=== PATIENT | female | born 1955 | race Caucasian/White ===

== ENCOUNTER → 2017-12-11 | Day surgery (SDC) | payer BC ==
[2017-12-10 12:25] LABS: ANION GAP 14.2 mmol/L (8-16); BLOOD UREA NITROGEN 10 mg/dL (7-26); BUN/CREATININE RATIO 13 (6-25); CALCIUM 9.5 mg/dL (8.4-10.2); CARBON DIOXIDE 27 mmol/L (22-29); CHLORIDE 104 mmol/L (98-107); CREATININE, SERUM 0.77 mg/dL (0.57-1.11); EST GLOMERULAR FILTRATION RATE > 60 ML/MIN (60-); GLUCOSE 73 mg/dL (74-118); POTASSIUM 4.2 mmol/L (3.5-5.1); SODIUM 141 mmol/L (136-145)
[~2017-12-11] MED LIST: AMLODIPINE BESYL5 MG PO; BISOPROLOL-HCT1 EAC1 PO; DEXAMETHASONE SOD PHOS INJ 4 MG/ML VIAL ONE; ENBREL50 MG/1 ML SC; ESTRADIOL1 MG PO; FENTANYL CITRATE/PF 100MCG/2 ML INJ ONE; KETOROLAC TROMETHAMINE 30 MG/ML VIAL ONE; LIDOCAINE HCL 2% LOCAL INJ 5 ML SDV VIAL INJ ONE; MELOXICAM7.5 MG PO; MIDAZOLAM HCL 2 MG/2 ML VIAL ONE; NEXIUM20 MG PO; ONDANSETRON HCL INJ 2 MG/ML VIAL ONE; PREDNISONE5 MG PO; PROPOFOL IV EMULSION 10 MG/ML 20 ML VIAL ONE; SEVOFLURANE INHAL SOLN 250 ML PEN BTL ONE; VENLAFAXINE HCL75 MG PO; VIVELLE-DOT1 EAC3 TOP; ZOLPIDEM TARTRAT5 MG PO
[2017-12-11] MEDS: CEFAZOLIN SOD 1 GM VIAL ONE (07:02)
[2017-12-11 10:45] VITALS: BP 123/68
[2017-12-11] MEDS: FENTANYL CITRATE/PF 100MCG/2 ML INJ ONE (10:49)
--- NOTE | 2017-12-11 12:23 | Operative Report ---
DATE OF PROCEDURE: December 11, 2017 VARNISH MAKER: Gen Hernandez PA-C The patient was brought to the operating room for induction of anesthesia. Throughout this case, my PA's assistance was necessary for retraction of soft tissue and positioning of the extremity. This allows for efficient and technically successful execution of the operation and is considered medically necessary. PREOPERATIVE DIAGNOSIS: Right carpal tunnel syndrome. POSTOPERATIVE DIAGNOSIS: Right carpal tunnel syndrome. PROCEDURE: Right endoscopic carpal tunnel release. INDICATIONS: The patient is a 61-year-old lady who has clinic signs and symptoms consistent with right carpal tunnel syndrome. She has failed conservative management and would like to proceed with definitive intervention. The risks and benefits of an endoscopic versus open carpal tunnel release have been explained. She states she understands and wishes to proceed. PROCEDURE: The patient was brought to the operating room. She was placed under general anesthetic. Prophylactic antibiotics were given in the holding area. The upper extremity was prepped and draped in a sterile manner. A well-padded tourniquet was placed on the upper arm and inflated to 250 mmHg. An operative time out was performed. A 1-cm incision was made over the flexion crease of the wrist. The palmaris longus was retracted to the radial side of the wound. The flexor retinaculum was elevated and incised with a pair of sharp tenotomy scissors. An elevator was used to tease the tenosynovium off the undersurface of the transverse carpal ligament. Dilators were placed, and the hook of the hamate was palpated. The [employer] endoscope was then placed into the carpal tunnel. The undersurface of the ligament was cleanly visualized without evidence of soft tissue interposition. The knife was deployed, and the ligament was cut from distal to proximal. Full-thickness cut was noted. The proximal retinaculum was then incised under direct visualization using a pair of blunt Metzenbaum scissors. The wound was irrigated and closed with 2 interrupted 4-0 nylon stitches. A sterile bandage was applied, and the patient was extubated. The patient was transferred to the recovery room in stable condition. Blood loss was less than 5 mL, and at the end of the procedure needle and sponge counts were correct. Job#: [id number] MARY
--- OUTSIDE RECORDS SUMMARY | 2017-12-11 14:32 | XMS REPORT | Clinical Summary ---
Author Author [facility] Organization [facility] Address Unknown Phone Unavailable Care Team Providers Care Legal Counsel Name Role Phone Bryan Reyes MD PCP Allergies Active Allergy Reactions Severity Noted Date Comments Sulfa (Sulfonamide Hives, Swelling 06/14/2016 Antibiotics) Current Medications Prescription Sig. Disp. Refills Start End Date Status Date amLODIPine (NORVASC) 2.5 TAKE 1 TABLET BY MOUTH 90 tablet 1 12/06/19 Active MG tablet EVERY DAY 16 ETANERCEPT (ENBREL SUBQ) Inject under the skin Active once a week. predniSONE (DELTASONE) 5 Take 5 mg by mouth daily. Active mg tablet venlafaxine (EFFEXOR) 50 Take by mouth daily. Active MG tablet estradiol (ESTRACE) 1 MG Take 1 mg by mouth daily. Active tablet esomeprazole (NexIUM) 40 Take 40 mg by mouth daily Active MG capsule before breakfast. bisoprolol-hydrochlorothi Take 1 tablet by mouth Active azide (ZIAC) 5-6.25 mg daily. per tablet zolpidem (AMBIEN) 5 MG Take 5 mg by mouth Active tablet nightly as needed for sleep. Active Problems No known active problems Family History Medical History Relation Name Comments Cancer Father Heart disease Father Hypertension Father Cancer Sister Relation Name Status Comments Father Sister Social History Tobacco Use Types Packs/Day Years Used Date Current Some Day Smoker Comments: quit 30 years ago Alcohol Use Drinks/Week oz/Week Comments No Sex Assigned at Date Recorded Not on file Last Filed Vital Signs Not on file Plan of Treatment Health Maintenance Due Date Last Done Comments CERVICAL CANCER SCREENING 12/25/1976 SHINGRIX VACCINE (#1) 12/25/2005 ZOSTER VACCINE 2015 BREAST CANCER SCREENING 09/01/2016 09/01/2014, 07/15/2013, 04/19/2012, Additional history exists INFLUENZA VACCINE 09/26/2017 COLON CANCER SCREENING 02/02/2025 02/02/2015 Results Not on fileafter 12/10/2016
== END | disposition home or self-care (01) ==
LOC: OR 05:43
PROVIDERS: ATTEND Specialist
DX: G56.01 Carpal tunnel syndrome, right upper limb (principal); I10 Essential (primary) hypertension; K21.9 Gastro-esophageal reflux disease without esophagitis; F41.9 Anxiety disorder, unspecified; Z01.810 Encounter for preprocedural cardiovascular examination; Z01.812 Encounter for preprocedural laboratory examination; Z88.2 Allergy status to sulfonamides
CPT/HCPCS: 36415; 80048; 93005; J0690; J1100; J1885; J2001; J2250; J2405